=== PATIENT | male | born 1990 | race Caucasian/White ===

== ENCOUNTER → 2020-05-14 13:21 | Outpatient (BNVA) | payer SELFPAY | PROVIDERS: Visit Provider Nurse Practitioner Family | DX: M25.532 Pain in left wrist (principal) | CPT/HCPCS: 73110 ==

== ENCOUNTER 2023-03-28 01:56 | Emergency (ER) | payer SELFPAY ==
[2023-03-28 02:15] VITALS: BP 124/83; PULSE 67; RESP 18; TEMP 36.1; O2SAT 97
--- NOTE | 2023-03-28 02:43 | XRR_ITS ---
PROCEDURE INFORMATION: Exam: XR Left Foot Exam date and time: 03/28/2023 2:49 AM Age: 32 years old Clinical indication: Injury or trauma; Fall; Blunt trauma; Patient HX: C/O pain to lateral side of left foot after tripping walking down a short flight of steps. ; Additional info: Fall ft pain TECHNIQUE: Imaging protocol: Radiologic exam of the left foot. Views: 3 or more views. COMPARISON: No relevant prior studies available. FINDINGS: Bones/joints: Normal. Soft tissues: Normal. XR/XR foot LT min 3V* [id number] IMPRESSION: No acute findings.
[2023-03-28 03:21] VITALS: PULSE 66; O2SAT 100
--- NOTE | 2023-03-28 05:00 | ED_ITS ---
HPI - Extremity Problem General: Chief complaint: Extremity Injury, Lower Stated complaint: Left foot injury Time Seen by Provider: 03/28/23 02:40 History of Present Illness: 32-year-old male who fell down 2 steps e arlier injuring his left foot. He complains of left lateral midfoot pain. Some swelling. No other injury. Associated symptoms: Deny chest pain Review of Systems Card: Denies: chest pain Resp: Denies: dyspnea GI: Denies: abdominal pain or vomiting PFSH ED PFSH: Social History Smoking and tobacco/nicotine status: current every day tobacco/nicotine user smokeless tobacco Alcohol intake: current Alcohol intake frequency: holidays/special occasions only Substance/Drug Use: current Substance/Drug use frequency: few times a month Physical Exam Const: COMMON NORMALS: no acute distress GENERAL APPEARANCE: cooperative; not ill appearing and not frail appearing HENMT: COMMON NORMALS: normocephalic, atraumatic and Normal external nose present HEAD & SCALP: normocephalic and atraumatic FACE & SINUS: normal facial exam and face symmetric NOSE: Normal external nose present Eye: COMMON NORMALS: Equal, round and reactive pupils present and EOMs intact bilaterally PUPIL: Yes Equal, round and reactive pupils present Neck/C-Spine: GENERAL: Yes trachea midline Chest: CHEST: Yes Symmetrical chest wall rise Resp: COMMON NORMALS: normal respiratory effort and No retractions Cardio: COMMON NORMALS: regular rate and regular rhythm RATE: regular rate RHYTHM: regular rhythm Extremity: NARRATIVE EXTREMITY EXAM: Exam the left lower extremity reveals tenderness over the left fourth proximal metatarsal. No significant swelling. No bruising. Capillary refill and sensation are normal distally. No ankle tenderness or deformity. Neuro: BEAR COMA SCALE: document GCS findings [place] coma scale eye opening: Spontaneous Bear coma scale verbal response: Orientated [place] coma scale motor response: Obey commands Bear coma scale total score: 15 SENSORY EXAM: Yes extremities (intact) Psych: COMMON NORMALS: speech normal SPEECH: Yes normal speech Skin: COMMON NORMALS: no rashes or lesions noted GENERAL SKIN EXAM: no rashes or lesions noted Course Vital Signs: Vital signs: Vital Signs Temperature 97 F L 03/28/23 02:15 Pulse Rate 66 03/28/23 03:21 Respiratory Rate 18 03/28/23 02:15 Blood Pressure 124/83 03/28/23 02:15 Pulse Oximetry 100 03/28/23 03:21 Oxygen Delivery Me thod Room Air 03/28/23 02:15 MDM - Extremity (Nontraumatic) Medical Decision Making X-ray negative. Will allow home. Lab Data Radiology Impressions Foot X-Ray 03/28/23 02:43 IMPRESSION: No acute findings. All radiology interpretation(s) finalized by discharge Discharge Plan Discharge Patient Disposition: Home Clinical Impression: Contusion of foot, left Condition: Stable Prescriptions: New ketorolac 10 mg tablet 10 mg PO TID PRN (Reason: pain) Qty: 10 0RF No Action tramadol 50 mg tablet 50 mg PO Q6H PRN (Reason: pain) 5 Days Qty: 20 0RF prednisone 20 mg tablet 60 mg PO DAILY 5 Days Qty: 15 0RF Discharge Orders: Discharge ED (Routine); Ordered 03/28/23 Ordered By: Vernon Broussard Patient Instructions: Contusion in Adults (ED), Opioid Safety, Pain Management Activity Restrictions/Additional Instructions: Crutches for weightbearing until you feel you can bear weight more appropriately. You may bear weight as tolerated. Ice for pain. Medication as directed. Follow-up with your doctor this week. Coding Level of Care Code ED Transfer Car Operator Drier for Sandra Araujo
== END 2023-03-28 03:30 | disposition home or self-care (01) ==
PROVIDERS: Emergency Provider Emergency Medicine
DX: S90.32XA Contusion of left foot, initial encounter (principal); F17.220 Nicotine dependence, chewing tobacco, uncomplicated; W10.8XXA Fall (on) (from) other stairs and steps, initial encounter
CPT/HCPCS: 73630; 99283